=== PATIENT | male | born 1960 | race Caucasian/White ===

== ENCOUNTER 2019-10-19 12:13 | Outpatient (CLI) | payer MEDICARE ==
--- NOTE | 2019-10-19 13:29 | CT ---
CT chest noncontrast low-dose pulmonary lung screening HISTORY: Tobacco abuse. Former smoker. FINDINGS: Lungs are slightly hyperinflated with attenuation of progression of pleural vascular markin gs. Minimal dependent bibasilar atelectasis. There are scattered tiny pleural-based soft tissue nodules. No parenchymal mass is reliably demonstra eusebia. No pleural fluid or pneumothorax. Airway patent. Lack of contrast limits evaluation of the soft tissues. No bulky mediastinal adenopathy. Small pocket of fluid is present within the superior pericardial reflection. Old right rib fractures. Within the partially visualized upper abdomen, small low-density lesions of the liver are density consistent with cysts. IMPRESSION: Lung RADS category 2. Benign. Suggest routine screening. Emphysematous changes of lungs.
== END 2019-10-19 12:14 | disposition home or self-care (01) ==
LOC: CT 12:13
PROVIDERS: ATTEND Family Medicine
DX: Z12.2 Encounter for screening for malignant neoplasm of respiratory organs (principal); Z87.891 Personal history of nicotine dependence; J43.9 Emphysema, unspecified
CPT/HCPCS: G0297

== ENCOUNTER 2020-10-19 09:39 | Outpatient (CLI) | payer MEDICARE ==
--- NOTE | 2020-10-19 10:42 | ULT ---
Bilateral renal ultrasound CLINICAL INDICATION: Kidney stones. COMPARISON: Abdominal ultrasound on 02/09/2019 FINDINGS: Right kidney: No renal mass or hydronephrosis is seen. There is an echogenic focus seen in the midpor tion right kidney measuring approximately 6 mm. Definitive shadowing is difficult to delineate. Was not seen on prior ultrasound exam, but this may represent a nonobstructing calculus versus prominent vessel.The right kidney measures 10.4 cm x 4.9 cm. Left kidney: A small 1 cm anechoic structure seen in the midportion left kidney most compatible with a small cyst. No solid renal mass, renal calculus, or hydronephrosis is seen.The left kidney measures 10.9 cm x 5.5 cm. Urinary bladder: Within normal limits for degree of distention. Urinary bladder volume is 223.9 mL. IMPRESSION: 1. No evidence of hydronephrosis. 2. Question of 6 mm calculus midportion right kidney. However, no obvious shadowing is seen to defini tely confirm this represents a calculus. This may represent a prominent vessel. 3. Small left renal cyst.
--- NOTE | 2020-10-19 11:08 | ULT ---
EXAM: US Soft Tissue Other PROVIDED CLINICAL HISTORY: Palpable mass on biceps COMPARISON: None FINDINGS: Limited sonographic interrogation was performed of the right bicep region in the region of palpable c oncern. There is no evidence for sonographically apparent mass or fluid collection. IMPRESSION: No sonographic abnormality is evident to explain the palpable finding. If there is persistent clinica l concern, MRI with and without contrast is recommended.
== END 2020-10-19 09:40 | disposition home or self-care (01) ==
LOC: ULT 09:39
PROVIDERS: ATTEND Family Medicine
DX: G90.4 Autonomic dysreflexia (principal); M85.621 Other cyst of bone, right upper arm; N28.1 Cyst of kidney, acquired; Z87.442 Personal history of urinary calculi
CPT/HCPCS: 76770; 76999

== ENCOUNTER 2020-12-19 13:22 | Outpatient (CLI) | payer MEDICARE | END 2020-12-19 13:23 | disposition home or self-care (01) | LOC: BICCT 13:22 | PROVIDERS: ATTEND Family Medicine | DX: Z12.2 Encounter for screening for malignant neoplasm of respiratory organs (principal); Z87.891 Personal history of nicotine dependence; K76.9 Liver disease, unspecified | CPT/HCPCS: 71271 ==

== ENCOUNTER 2021-02-28 11:34 | Outpatient (CLI) | payer MEDICARE | END 2021-02-28 11:35 | disposition home or self-care (01) | LOC: SCSRAD 11:34 | PROVIDERS: ATTEND Psychiatry & Neurology Neurology | DX: R20.2 Paresthesia of skin (principal); Z98.1 Arthrodesis status | CPT/HCPCS: 72040 ==